=== PATIENT | female | born 1945 | race Caucasian/White ===

== ENCOUNTER 2021-06-25 16:12 | Emergency (ER) | payer OTHER, MEDICAID ==
[~2021-06-25] VITALS: Ht 160 cm; Wt 81.6 kg
[2021-06-25 16:22] VITALS: BP 124/56
--- NOTE | 2021-06-25 17:16 | NUR ---
PT AMBULATED TO BED 1.
--- NOTE | 2021-06-25 17:29 | NUR ---
PT HAS BEEN EXPERIENCING BLE EDEMA FOR 3 MONTHS, LEFT LEG SWELLING HAS DECREASED BUT RIGHT LEG CONTINUES TO BE EDEMATOUS AND SWOLLEN W/ INTERMITTENT PAIN. PT REFFERED HERE FROM IMSOLO BELL MD FOR RULE OUT DVT TO RIGHT LOWER EXTREMITY, PATIENT POINTS TO PRETIBIAL AREA. PATIENT HAS A HISTORY OF HTN, DM, HLD NKDA BED IS IN LOW LOCKED POSITION. DAUGHTER AT BEDSIDE WHO TRANSLATES.
[2021-06-25 18:02] LABS: BASOPHILS # (AUTO) 0.3 K/uL (0.00-0.22); BASOPHILS % (AUTO) 2.8 % (0.0-2.0); EOSINOPHILS # (AUTO) 0.1 K/uL (0-0.4); EOSINOPHILS % (AUTO) 1.2 % (0.0-4.0); HEMATOCRIT 41.5 % (36-48); HEMOGLOBIN 13.7 g/dL (12.0-16.0); LYMPHOCYTES # (AUTO) 1.9 K/uL (2.5-16.5); LYMPHOCYTES % (AUTO) 20.1 % (20.5-51.1); MEAN CORPUSCULAR HEMOGLOBIN 29 pg (27-31); MEAN CORPUSCULAR HGB CONC 33 g/dL (33-37); MEAN CORPUSCULAR VOLUME 88.4 fL (80-94); MONOCYTES # (AUTO) 0.7 K/uL (0.8-1.0); MONOCYTES % (AUTO) 7.6 % (1.7-9.3); NEUTROPHILS # (AUTO) 6.4 K/uL (1.8-7.7); NEUTROPHILS % (AUTO) 68.3 % (42.2-75.2); PLATELET COUNT (AUTO) 241 K/uL (140-450); RED BLOOD CELL COUNT(AUTO) 4.69 MIL/uL (4.20-5.40); RED CELL DISTRIBUTION WIDTH 13.5 % (11.6-13.7); WHITE BLOOD COUNT (AUTO) 9.4 K/uL (4.8-10.8)
[2021-06-25 18:11] LABS: ANION GAP 9.7 (8-16); CARBON DIOXIDE 30.8 mmol/L (21-32); CHLORIDE 104 mmol/L (98-107); CREATININE 0.9 mg/dL (0.6-1.3); GLUCOSE 266 mg/dL (74-106); POTASSIUM 3.5 mmol/L (3.5-5.1); SODIUM SERUM 141 mmol/L (136-145); UREA NITROGEN, BLOOD 20 mg/dL (7-18)
[2021-06-25 18:23] LABS: PROTHROMBIN TIME 10.6 secs (10.8-13.4)
--- NOTE | 2021-06-25 18:49 | NUR ---
RESTING QUIETLY WITH RLE ELEVATED ON PILLOW,STATES DISCOMFORT IS TOLERABLE, AWAITING RESULTS AND PLAN OF CARE.
--- NOTE | 2021-06-25 19:18 | NUR ---
RECEIVED REPORT FROM JUDY MACARIO, TRANSFER OF CARE AT THIS TIME
--- NOTE | 2021-06-25 19:21 | NUR ---
CARE ENDORSED TO REA MACARIO, REPORT PROVIDED.
--- NOTE | 2021-06-25 20:12 | NUR ---
Patient discharged with v/s stable. Written and verbal after care instructions given and explained. Patient verbalized understanding. Ambulatory with steady gait. All questions addressed prior to discharge. Advised to follow up with PMD.
[2021-06-25 20:14] VITALS: BP 136/61
== END 2021-06-25 20:12 | disposition home or self-care (01) ==
LOC: MED 16:12
DX: R60.0 Localized edema (principal); M79.604 Pain in right leg; E11.65 Type 2 diabetes mellitus with hyperglycemia
CPT/HCPCS: 36415; 80048; 85025; 85610; 93970; 99284